=== PATIENT | female | born 1945 | race Two or more races ===

== ENCOUNTER 2017-06-26 07:23 | Day surgery (SDC) | payer OTHER ==
[2017-06-25 14:25] VITALS: BMI 28.3
[2017-06-26] MEDS ORDERED: LIDOCAINE HCL/PF 2% SDV 5ML VIAL ONE (07:41)
[2017-06-26] MEDS ORDERED: PROPOFOL 20 ML ONE (07:41)
[2017-06-26 08:54] VITALS: TEMP 98.1
[2017-06-26 09:35] VITALS: BP 146/66; PULSE 69
== END 2017-06-26 09:36 | disposition home or self-care (01) ==
LOC: JASU-ENDO 07:23
PROVIDERS: ATTEND Internal Medicine Gastroenterology
PROC: 0DJD8ZZ Inspection of Lower Intestinal Tract, Via Natural or Artificial Opening Endoscopic (ICD-10-PCS; principal; 2017-06-26 08:00)
DX: Z12.11 Encounter for screening for malignant neoplasm of colon (principal); K57.30 Diverticulosis of large intestine without perforation or abscess without bleeding

== ENCOUNTER 2017-12-01 18:05 | Emergency (ER) | payer OTHER ==
[2017-12-01 18:12] VITALS: BP 155/85; PULSE 95; TEMP 97.4; BMI 28.1
--- NOTE | 2017-12-01 19:36 | PDOC ---
History of Present Illness - General Chief Complaint: Injury Stated Complaint: FALL INJURY Time Seen by Provider: 12/01/17 18:22 - History of Present Illness Initial Comments: 12/01/17 18:42 CHIEF COMPLAINT: fall HISTORY OF PRESENT ILLNESS: 72 yo F with hx of HTN and HLD presents to [facility] s/p fall down stairs yesterday. Patient states she slipped down stairs and hit her head, neck, and lower back. She states that she initially felt "ok " and went to physical therapy and did "some exercises yesterday", but when she woke up this morning she felt a headache, neck pain, back pain, and pain to her ankle. She noticed that her left ankle was swollen as well. She reports that "when I cough today my abdomen hurts" and that she has never had abdominal pain before. She denies any LOC, change in vision, nausea, or vomiting. PAST MEDICAL HISTORY: Denies past medical history FAMILY HISTORY: Denies SOCIAL HISTORY:Denies tobacco, alcohol, illicit drug use. SURGICAL HISTORY: Denies ALLERGIES: N REVIEW OF SYSTEMS General/Constitutional: Denies fever or chills. Denies weakness. HEENT: Denies change in vision. Denies ear pain or discharge. Denies sore throat. Cardiovascular: Denies chest pain or shortness of breath. Respiratory: Denies cough, wheezing, or hemoptysis. Gastrointestinal: "Abdominal pain when coughing today." Denies nausea, vomiting , diarrhea or constipation. Denies rectal bleeding. Genitourinary: Denies dysuria, frequency, or change in urination. Musculoskeletal: Neck, back, and L ankle pain. Skin and breasts: Denies rash or easy bruising. Neurologic: Headache. Denies vertigo, loss of consciousness, or loss of sensation. PHYSICAL EXAM General Appearance: Well-appearing, appropriately dressed. No apparent distress. HEENT: EOMI, PERRLA, normal ENT inspection, normal voice, TMs normal, pharynx normal. No conjunctival pallor. No photophobia, scleral icterus. Respiratory/Chest: Lungs CTAB. No shortness of breath, chest tenderness, respiratory distress, accessory muscle use. No crackles, rales, rhonchi, stridor , wheezing, dullness Cardiovascular: RRR. S1, S2. Vascular Pulses: Dorsalis-Pedis (R): 2+, Dorsalis-Pedis (L): 2+ Gastrointestinal/Abdominal: Normal bowel sounds. Abdomen soft, non-distended. No tenderness or rebound tenderness. No organomegaly, pulsatile mass, guarding , hernia, hepatomegaly, splenomegaly. Musculoskeletal/Extremities: Tenderness and swelling to L lateral malleolus. Normal inspection. FROM of all extremities, normal capillary refill. Pelvis Stable. No CVA tenderness. No tenderness to extremities, pedal edema, swelling , erythema or deformity. Integumentary: Appropriate color, dry, warm. No cyanosis, erythema, jaundice or rash Neurologic: bedspread cutter II-XII intact. Fully oriented, alert. Appropriate mood/affect. Motor strength 5/5. No appreciable EOM palsy, facial droop or sensory deficit. Past History - Past Medical History Allergies/Adverse Reactions: Allergies Allergy/AdvReac Type Severity Reaction Status Date / Time Penicillins Allergy Verified 12/01/17 18:12 Home Medications: Ambulatory Orders Amlodipine Besylate [Norvasc -] 5 mg PO DAILY 06/25/17 Simvastatin 20 mg PO DAILY 06/25/17 Cholecalciferol (Vitamin D3) [Vitamin D -] 400 unit PO DAILY 06/26/17 Multivitamin [One Daily] 1 each PO DAILY 06/26/17 Diclofenac Sodium 50 mg PO BID PRN #10 tablet. 12/01/17 Anemia: No Asthma: No Cancer: No Cardiac Disorders: No CVA: No COPD: No CHF: No DVT: No HTN: Yes Hypercholesterolemia: Yes - Surgical History Abdominal Surgery: No Appendectomy: No Cardiac Surgery: No Cholecystectomy: No Lung Surgery: No Neurologic Surgery: No Orthopedic Surgery: No - Suicide/Smoking/Psychosocial Hx Smoking History: Never smoked Hx Alcohol Use: No Drug/Substance Use Hx: No Substance Use Type: None *Physical Exam - Vital Signs Last Vital Signs Temp Pulse Resp BP Pulse Ox 97.4 F L 95 H 18 155/85 98 12/01/17 18:08 12/01/17 18:08 12/01/17 18:08 12/01/17 18:08 12/01/17 18:08 Medical Decision Making - Medical Decision Making 12/01/17 19:36 72 yo F with hx of HTN and HLD presents to [facility] s/p fall down stairs yesterday. -Head/C-spine/abdomen CT -Rib, ankle x-rays *DC/Admit/Observation/Transfer Diagnosis at time of Disposition: Fall (on) (from) other stairs and steps, initial encounter - Discharge Dispostion Disposition: HOME Condition at time of disposition: Stable Admit: No - Prescriptions Prescriptions: Diclofenac Sodium 50 mg PO BID PRN #10 tablet.dr WILLIAMSON Reason: Pain - Referrals Referrals: Erasmo Toscano MD [Primary Care Provider] - - Patient Instructions Printed Discharge Instructions: How to Prevent Falls, DI for Closed Head Injury , DI for Ankle Sprain Additional Instructions: Please take medication as prescribed. Follow up with your primary care doctor this week. If you develop any change in vision, weakness, slurred speech, or any new or worsening symptoms, please return to the ER. - Post Discharge Activity
== END 2017-12-01 21:50 | disposition home or self-care (01) ==
LOC: JERFT 18:05
DX: S09.8XXA Other specified injuries of head, initial encounter (principal); M54.2 Cervicalgia; M54.5 Low back pain; M25.572 Pain in left ankle and joints of left foot; W10.8XXA Fall (on) (from) other stairs and steps, initial encounter; Y93.89 Activity, other specified; Y92.038 Other place in apartment as the place of occurrence of the external cause; Y99.8 Other external cause status; I10 Essential (primary) hypertension; E78.5 Hyperlipidemia, unspecified
CPT/HCPCS: 70450-TC; 71111-TC; 72125-TC; 73610-TC-LT; 73630-TC-LT; 74176-TC; 99281-25

== ENCOUNTER 2018-03-26 01:21 | Emergency (ER) | payer OTHER ==
[2018-03-26 01:37] VITALS: BMI 25.0
[2018-03-26] MEDS ORDERED: SODIUM CHLORIDE 0.9% 1000 ML INFUS.BAG IV ONE (01:51)
[2018-03-26] MEDS ORDERED: ONDANSETRON 4 MG/2 ML VIAL IVPUSH ONE (01:51)
[2018-03-26 02:08] LABS: BASO % 0.3 % (0-2.0); HEMATOCRIT 41.1 % (32.4-45.2); HEMOGLOBIN 14.2 GM/dL (10.7-15.3); LYMPH % 24.2 % (8-40); MCH 31.2 pg (25.7-33.7); MCHC 34.6 g/dl (32.0-36.0); MEAN CELL VOLUME 90.1 fl (80-96); MEAN PLT VOLUME 9.4 fl (7.5-11.1); MONO % 9.1 % (3.8-10.2); NEUT % 64.4 % (42.8-82.8); PLATELET COUNT 179 K/MM3 (134-434); RBC 4.56 M/mm3 (3.60-5.2); WHITE BLOOD COUNT 10.8 K/mm3 (4.0-10.0)
[2018-03-26 02:20] LABS: INR 0.93 (0.82-1.09); PROTHROMBIN TIME (PATIENT) 10.5 SEC (9.7-13.0)
--- NOTE | 2018-03-26 02:22 | PDOC ---
History of Present Illness - General Chief Complaint: Nausea/Vomiting Stated Complaint: NAUSEA/VOMITING Time Seen by Provider: 03/26/18 02:22 History Source: Patient - History of Present Illness Initial Comments: 03/26/18 03:03 72 year old female c/o waking up with a headache with 1 episode of vomiting and diarrhea with generalized abdominal pain. patient became diaphoretic at the time. symptoms started at 12 am. denies chest pain, fever/chills, urinary symptoms, dizziness. pmhx: htn Past History - Past Medical History Allergies/Adverse Reactions: Allergies Allergy/AdvReac Type Severity Reaction Status Date / Time Penicillins Allergy Verified 03/26/18 01:37 Home Medications: Ambulatory Orders Amlodipine Besylate [Norvasc -] 5 mg PO DAILY 06/25/17 Simvastatin 20 mg PO DAILY 06/25/17 Anemia: No Asthma: No Cancer: No Cardiac Disorders: No CVA: No COPD: No CHF: No DVT: No HTN: Yes Hypercholesterolemia: Yes - Surgical History Abdominal Surgery: No Appendectomy: No Cardiac Surgery: No Cholecystectomy: No Lung Surgery: No Neurologic Surgery: No Orthopedic Surgery: No - Suicide/Smoking/Psychosocial Hx Smoking History: Never smoked Have you smoked in the past 12 months: No Information on smoking cessation initiated: No Hx Alcohol Use: No Drug/Substance Use Hx: No Substance Use Type: None Review of Systems - Review of Systems Able to Perform ROS?: Yes Is the patient limited Welsh proficient: No Constitutional: Yes: Diaphoresis ABD/GI: Yes: Diarrhea, Nausea, Vomiting, Abdominal cramping Neurological: Yes: Headache. No: Symptoms reported, See HPI, Numbness, Paresthesia, Pre-Existing Deficit, Seizure, Tingling, Tremors, Weakness, Unsteady Gait, Ataxia, Dizziness, Other *Physical Exam - Vital Signs Last Vital Signs Temp Pulse Resp BP Pulse Ox 98.1 F 94 H 18 190/100 97 03/26/18 01:34 03/26/18 01:34 03/26/18 01:34 03/26/18 01:34 03/26/18 01:34 - Physical Exam General Appearance: Yes: Appropriately Dressed Respiratory/Chest: positive: Lungs Clear, Normal Breath Sounds Cardiovascular: positive: Regular Rhythm, Regular Rate Gastrointestinal/Abdominal: positive: Normal Bowel Sounds, Soft. negative: Tender Musculoskeletal: positive: Normal Inspection Extremity: positive: Normal Capillary Refill, Normal Inspection, Normal Range of Motion Integumentary: positive: Normal Color, Dry, Warm Neurologic: positive: Fully Oriented, Alert, Normal Mood/Affect Heart Score/ECG Review - ECG Intrepretation Rhythm: Regular Rhythm Comment:: 03/26/18 05:11 NSR: 86 BPM ED Treatment Course - LABORATORY CBC & Chemistry Diagram: 03/26/18 01:55 03/26/18 01:55 - ADDITIONAL ORDERS Additional order review: Laboratory Results 03/26/18 01:55 PT with INR 10.50 INR 0.93 03/26/18 01:55 RBC 4.56 MCV 90.1 MCHC 34.6 RDW 13.0 MPV 9.4 Neutrophils % 64.4 Lymphocytes % 24.2 Monocytes % 9.1 Eosinophils % 2.0 Basophils % 0.3 - Medications Given in the ED: ED Medications Discontinued Medications Generic Name Dose Route Start Last Admin Trade Name Freq PRN Reason Stop Dose Admin Ondansetron HCl 4 mg 03/26/18 01:51 03/26/18 02:15 Zofran Injection IVPUSH 03/26/18 01:52 4 mg ONCE ONE Administration Sodium Chloride 1,000 ml 03/26/18 01:51 03/26/18 02:15 Normal Saline - IV 03/26/18 01:52 1,000 ml ONCE ONE Administration Progress Note - Progress Note Progress Note: A: headache P; CBC CMP CT head EKG *DC/Admit/Observation/Transfer Diagnosis at time of Disposition: Gastroenteritis Headache Qualifiers: Headache type: tension-type Headache chronicity pattern: acute headache Intractability: not intractable Qualified Code(s): G44.209 - Tension-type headache, unspecified, not intractable - Discharge Dispostion Disposition: HOME - Referrals - Patient Instructions Printed Discharge Instructions: DI for Nausea -- Adult Additional Instructions: drink plenty of fluids. follow up with your doctor as soon as possible. return to the ER if symptoms worsen. - Post Discharge Activity
[2018-03-26 02:28] LABS: ACTIVATED PTT 26.4 SECONDS (26.9-34.4)
[2018-03-26 02:31] LABS: ALBUMIN 3.9 g/dl (3.4-5.0); ANION GAP 11 (8-16); BILIRUBIN,TOTAL 0.4 mg/dL (0.2-1.0); BLOOD UREA NITROGEN 17 mg/dL (7-18); CHLORIDE 106 mmol/L (98-107); CO2 26 mmol/L (21-32); CREATININE 0.6 mg/dL (0.55-1.02); GLUCOSE,RANDOM 98 mg/dL (74-106); POTASSIUM 3.8 mmol/L (3.5-5.1); SGOT/AST 18 U/L (15-37); SGPT/ALT 21 U/L (12-78); SODIUM 143 mmol/L (136-145); TOT PROT 7.4 g/dl (6.4-8.2)
[2018-03-26 02:33] LABS: ALK PHOS 121 U/L (45-117)
[2018-03-26 05:23] VITALS: BP 147/75; PULSE 79; TEMP 97.6
--- NOTE | 2018-03-26 10:00 | EKG ---
Test Reason : Blood Pressure : / mmHG Vent. Rate : 086 BPM Atrial Rate : 086 BPM P-R Int : 172 ms QRS Dur : 072 ms QT Int : 370 ms P-R-T Axes : 032 -01 026 degrees QTc Int : 442 ms POOR DATA QUALITY, INTERPRETATION MAY BE ADVERSELY AFFECTED NORMAL SINUS RHYTHM NORMAL ECG NO PREVIOUS ECGS AVAILABLE Confirmed by MD Dylan, Joseph ([id number]) on 03/26/2018 9:59:33 AM Referred By: Confirmed By:Joseph Richardson MD
== END 2018-03-26 05:23 | disposition home or self-care (01) ==
LOC: JER 01:21
PROC: 3E033GC Introduction of Other Therapeutic Substance into Peripheral Vein, Percutaneous Approach (ICD-10-PCS; principal; 2018-03-26)
DX: K52.9 Noninfective gastroenteritis and colitis, unspecified (principal); G44.209 Tension-type headache, unspecified, not intractable; I10 Essential (primary) hypertension; E78.00 Pure hypercholesterolemia, unspecified
CPT/HCPCS: 36415; 70450-TC; 80053; 83605; 84484; 85025; 85610; 85730; 93005; 93010; 96374; 99282-25; J7030

== ENCOUNTER 2020-10-20 00:48 | Inpatient (IN) | payer OTHER ==
[2020-10-20 01:27] VITALS: BMI 24.5
[2020-10-20] MEDS ORDERED: FAMOTIDINE 20 MG/50 ML IVPB 20 MG/50 ML MG IVPB ONE ×2 (01:34→02:42)
[2020-10-20] MEDS ORDERED: SODIUM CHLORIDE 1,000 ML IV STA (01:34)
[2020-10-20] MEDS ORDERED: ACETAMINOPHEN 1000 MG/100 ML VIAL (NON FORMULARY) IVPB ONE (01:34)
[2020-10-20] MEDS ORDERED: ONDANSETRON 4 MG/2 ML VIAL IVPUSH ONE (01:35)
[2020-10-20] MEDS ORDERED: ONDANSETRON 4 MG/2 ML VIAL ONE (02:42)
[2020-10-20] MEDS ORDERED: ACETAMINOPHEN INJECTION 100 ML IVPB ONE (02:42)
[2020-10-20 03:40] LABS: BASO % 0.3 % (0-2.0); EOS % 0.6 % (0-4.5); HEMATOCRIT 43.1 % (32.4-45.2); HEMOGLOBIN 14.7 GM/dL (10.7-15.3); LYMPH % 18.6 % (8-40); MCH 30.3 pg (25.7-33.7); MCHC 34.2 g/dl (32.0-36.0); MEAN CELL VOLUME 88.8 fl (80-96); MEAN PLT VOLUME 9.7 fl (7.5-11.1); MONO % 8.7 % (3.8-10.2); NEUT % 71.8 % (42.8-82.8); PLATELET COUNT 198 K/MM3 (134-434); RBC 4.85 M/mm3 (3.60-5.2); RDW 13.3 % (11.6-15.6); WHITE BLOOD COUNT 12.2 K/mm3 (4.0-10.0)
[2020-10-20 03:58] LABS: INR 1.03 (0.83-1.09); PROTHROMBIN TIME (PATIENT) 12.7 SEC (9.7-13.0)
[2020-10-20 04:00] LABS: CHLORIDE 102 mmol/L (98-107); POTASSIUM 3.5 mmol/L (3.5-5.1); SODIUM 137 mmol/L (136-145)
[2020-10-20 04:01] LABS: ACTIVATED PTT 26.6 SECONDS (25.2-36.5)
[2020-10-20 04:02] LABS: CALCIUM 8.6 mg/dL (8.5-10.1); LIPASE 116 U/L (73-393)
[2020-10-20 04:03] LABS: ALBUMIN 3.6 g/dl (3.4-5.0); ANION GAP 9 MMOL/L (8-16); BLOOD UREA NITROGEN 5.9 mg/dL (7-18); CO2 25 mmol/L (21-32); GLUCOSE,RANDOM 114 mg/dL (74-106); MAGNESIUM 2.1 mg/dL (1.8-2.4)
[2020-10-20 04:05] LABS: SGOT/AST 21 U/L (15-37); SGPT/ALT 24 U/L (13-61)
[2020-10-20 04:06] LABS: CREATININE 0.6 mg/dL (0.55-1.3); PHOSPHOROUS 3.1 mg/dL (2.5-4.9)
[2020-10-20 04:07] LABS: TOT PROT 7.2 g/dl (6.4-8.2)
[2020-10-20 04:08] LABS: ALK PHOS 124 U/L (45-117)
[2020-10-20] MEDS ORDERED: CEFTRIAXONE 1,000 MG in DEXTROSE 5%-WATER - 50 ML IVPB ONE (06:25)
[2020-10-20] MEDS ORDERED: CEFTRIAXONE 1 GM/50 ML BAG ONE (06:45)
[2020-10-20] MEDS ORDERED: MORPHINE SULFATE 2 MG/ML VIAL IVPUSH PRN (08:14)
[2020-10-20] MEDS ORDERED: ONDANSETRON 4 MG/2 ML VIAL IVPUSH PRN (09:00)
[2020-10-20] MEDS: SODIUM CHLORIDE 1,000 ML IV SCH (09:13)
[2020-10-20 10:34] LABS: LDH 154 U/L (84-246)
[2020-10-20] MEDS ORDERED: MORPHINE SULFATE 2 MG/ML VIAL ONE (11:44)
[2020-10-20] MEDS: TIMOLOL 0.25% OPHTHALMIC SOL 5 ML BOTTLE OU SCH (12:06)
[2020-10-20 12:53] LABS: PH,URINE 5.5 (5.0-8.0); URINE APPEARANCE CLEAR; URINE BILIRUBIN NEGATIVE (NEGATIVE); URINE COLOR YELLOW; URINE GLUCOSE (UA) NEGATIVE (NEGATIVE); URINE KETONE NEGATIVE (NEGATIVE); URINE PROTEIN NEGATIVE (NEGATIVE)
[2020-10-20 12:54] LABS: EPI CELLS 4.2 /uL (0-25.1); HYALINE CASTS 0.25 /uL (0-3.1); URINE BACTERIA 12.4 /uL (0-1359); URINE LEUK ESTERASE NEGATIVE (NEGATIVE); URINE NITRITE NEGATIVE (NEGATIVE); URINE RBC 13 /uL (0-23.9); URINE UROBILINOGEN 0.2 mg/dL (0.2-1.0); URINE WBC 7.5 /uL (0-25.8)
[2020-10-20 12:56] LABS: CHOLESTEROL 146 mg/dL (50-200)
[2020-10-20 12:57] LABS: LDL CHOLESTEROL (ONLY SJRH) 70 mg/dL (5-100); TRIGLYCERIDES 106 mg/dL (0-150)
[2020-10-20 13:00] LABS: HDL CHOLESTEROL 68 mg/dL (40-60)
[2020-10-20] MEDS: FAMOTIDINE 20 MG/50 ML IVPB 20 MG/50 ML MG IVPB SCH (23:57)
[2020-10-21] MEDS ORDERED: DEXTROSE 5%-WATER 100 ML IVPB ONE ×2 (01:06→10:21)
[2020-10-21] MEDS ORDERED: MEROPENEM 1 GM VIAL (RESTRICTED TO ID) IVPB ONE ×2 (01:06→10:21)
[2020-10-21] MEDS: MEROPENEM 1 GM in DEXTROSE 5%-WATER 100 ML IVPB SCH ×3 (02:10→10:27)
[2020-10-21] MEDS: SODIUM CHLORIDE 1,000 ML IV SCH ×2 (02:49→08:19)
[2020-10-21 08:24] LABS: HEMATOCRIT 36.9 % (32.4-45.2); HEMOGLOBIN 12.4 GM/dL (10.7-15.3); MCH 29.8 pg (25.7-33.7); MCHC 33.5 g/dl (32.0-36.0); MEAN CELL VOLUME 89.2 fl (80-96); MEAN PLT VOLUME 9.7 fl (7.5-11.1); PLATELET COUNT 167 K/MM3 (134-434); RBC 4.14 M/mm3 (3.60-5.2); RDW 13.3 % (11.6-15.6); WHITE BLOOD COUNT 9.8 K/mm3 (4.0-10.0)
[2020-10-21 08:34] LABS: POTASSIUM 3.2 mmol/L (3.5-5.1)
[2020-10-21 08:38] LABS: BLOOD UREA NITROGEN 4.8 mg/dL (7-18); CALCIUM 8.3 mg/dL (8.5-10.1); MAGNESIUM 2.2 mg/dL (1.8-2.4)
[2020-10-21 08:41] LABS: CREATININE 0.5 mg/dL (0.55-1.3)
[2020-10-21 08:42] LABS: PHOSPHOROUS 2.6 mg/dL (2.5-4.9)
[2020-10-21] MEDS ORDERED: CEFTRIAXONE 1 GM in DEXTROSE 5%-WATER - 50 ML IVPB SCH (10:00)
[2020-10-21] MEDS: TIMOLOL 0.25% OPHTHALMIC SOL 5 ML BOTTLE OU SCH (10:27)
[2020-10-21] MEDS: FAMOTIDINE 20 MG/50 ML IVPB 20 MG/50 ML MG IVPB SCH ×2 (10:27→22:01)
[2020-10-21 16:00] LABS: MCH 29.9 pg (25.7-33.7); MCHC 33.3 g/dl (32.0-36.0); MEAN CELL VOLUME 89.8 fl (80-96); MEAN PLT VOLUME 10.2 fl (7.5-11.1); PLATELET COUNT 169 K/MM3 (134-434); RBC 4.35 M/mm3 (3.60-5.2); RDW 13.2 % (11.6-15.6); WHITE BLOOD COUNT 10.3 K/mm3 (4.0-10.0)
[2020-10-22] MEDS ORDERED: MEROPENEM 1 GM in DEXTROSE 5%-WATER 100 ML IVPB SCH (02:00)
[2020-10-22 06:55] LABS: BASO % 0.7 % (0-2.0); EOS % 4.4 % (0-4.5); HEMATOCRIT 36.2 % (32.4-45.2); HEMOGLOBIN 12.1 GM/dL (10.7-15.3); LYMPH % 34.4 % (8-40); MCH 29.8 pg (25.7-33.7); MCHC 33.5 g/dl (32.0-36.0); MEAN PLT VOLUME 9.4 fl (7.5-11.1); MONO % 8.1 % (3.8-10.2); NEUT % 52.4 % (42.8-82.8); PLATELET COUNT 163 K/MM3 (134-434); RBC 4.06 M/mm3 (3.60-5.2); RDW 13.3 % (11.6-15.6); WHITE BLOOD COUNT 7.4 K/mm3 (4.0-10.0)
[2020-10-22 07:08] LABS: POTASSIUM 3.4 mmol/L (3.5-5.1)
[2020-10-22 07:14] LABS: CALCIUM 7.9 mg/dL (8.5-10.1)
[2020-10-22 07:15] LABS: ALBUMIN 2.8 g/dl (3.4-5.0); BLOOD UREA NITROGEN 6.8 mg/dL (7-18); MAGNESIUM 2.1 mg/dL (1.8-2.4)
[2020-10-22 07:18] LABS: CREATININE 0.4 mg/dL (0.55-1.3)
[2020-10-22 07:19] LABS: BILIRUBIN,TOTAL 1.1 mg/dL (0.2-1); TOT PROT 5.6 g/dl (6.4-8.2)
[2020-10-22] MEDS ORDERED: POTASSIUM CHLORIDE TABS 20 MEQ TABLET.ER (FP) PO ONE (09:45)
[2020-10-22] MEDS ORDERED: amLODIPine BESYLATE 5 MG TABLET (FP) PO SCH (10:00)
[2020-10-22] MEDS: SODIUM CHLORIDE 1,000 ML IV SCH (10:41)
[2020-10-22] MEDS: FAMOTIDINE 20 MG/50 ML IVPB 20 MG/50 ML MG IVPB SCH (10:49)
[2020-10-22] MEDS: TIMOLOL 0.25% OPHTHALMIC SOL 5 ML BOTTLE OU SCH (11:40)
[2020-10-22 15:45] VITALS: BP 139/69; PULSE 84; TEMP 97.9
== END 2020-10-22 16:05 | disposition home or self-care (01) | DRG 392 ==
LOC: JER 00:48 → JERBED 03:02 → UNDODISIN 06:36 → J8W 22:47
PROVIDERS: ATTEND Nurse Practitioner Acute Care
DX: K52.89 Other specified noninfective gastroenteritis and colitis (principal); K62.5 Hemorrhage of anus and rectum; R10.9 Unspecified abdominal pain; I10 Essential (primary) hypertension; H40.059 Ocular hypertension, unspecified eye; M85.80 Other specified disorders of bone density and structure, unspecified site; E78.5 Hyperlipidemia, unspecified; H40.9 Unspecified glaucoma; Z88.0 Allergy status to penicillin
CPT/HCPCS: 36415; 74177-TC; 77063-TC; 77067-TC; 77080-TC-FY; 80048; 80053; 80061; 81003; 82272; 82550; 83036; 83605; 83615; 83690; 83721; 83735; 84100; 84443; 84484; 85025; 85027; 85610; 85730; 86850; 86900; 86901; 87040; 87086; 93005; 93010; 97116-GP; 97161-GP; 99285-25; C9803; J0131; U0003